=== PATIENT | male | born 1950 | race Caucasian/White ===

== ENCOUNTER 2020-09-07 14:12 | Inpatient (IN) | payer MEDICARE ==
[~2020-09-07] VITALS: Ht 180.3 cm; Wt 98.4 kg
[~2020-09-07 14:12] MED LIST: ACETAMINOPHEN325 MG PO; ALDACTONE25 MG PO; ATIVAN1 MG PO; BAYER CHEWABLE81 MG PO; CARDURA4 MG PO; CHLORTHALIDONE25 MG PO; CHRONULAC30 ML PO; CYMBALTA30 MG PO; DILANTIN100 MG PO; FENTANYL1 EAC5 TRANSDERM; FLAGYL500 MG PO; HYDRALAZINE HCL25 MG PO; K-DUR20 MEQ PO; LASIX40 MG PO; LEVOFLOXACIN500 MG PO; LOPRESSOR25 MG PO; NICODERM CQ1 EAC3 TRANSDERM; OXYCONTIN15 MG PO; PEPCID AC20 MG PO; SENNA LAXATIVE8.6 MG PO; SYNTHROID25 MCG PO; VITAMIN D325 MC1 PO; ZETIA10 MG PO; ZYPREXA5 MG PO
--- NOTE | 2020-09-07 14:28 | NUR ---
LAB CALLED A CRITICAL LAB OF [address] NURSE NOTIFIED DR. MCKEON OF CRITICAL LAB VALUE. DR AWARE. NO NEW ORDERS AT THIS TIME.
[2020-09-07] MEDS ORDERED: DILANTIN50 MG PO (15:39)
[2020-09-07 15:44] LABS: BILIRUBIN NEGATIVE (NEGATIVE); KETONE NEGATIVE (NEGATIVE); NITRITE NEGATIVE (NEGATIVE); UROBILINOGEN NORMAL mg/dL (< 2)
[2020-09-07] MEDS ORDERED: OXYCONTIN30 MG PO (16:10)
[2020-09-07] MEDS ORDERED: XANAX2 MG PO (16:14)
[2020-09-07] MEDS ORDERED: VITAMIN D-32000 UNIT PO (16:16)
[2020-09-07 16:18] LABS: BASOPHILS 0 % (0-2); EOSINOPHILS 3.2 % (0-7); HEMOGLOBIN 12.4 g/dL (13.5-17.5); LYMPHOCYTE ABS# 1.18 10x3/uL (1.32-3.57); LYMPHOCYTES 34.3 % (15-50); MCHC 32.6 g/dL (31.0-37.0); MCV 97.9 fL (80.0-100.0); MEAN PLATELET VOLUME 9.1 fL (7.4-10.4); MONOCYTES 7.6 % (2-11); NEUTROPHIL ABS# 1.89 10x3/uL (1.78-5.38); NEUTROPHILS 54.9 % (40-80); RBC 3.88 10x6/uL (4.20-6.10); RDW 13.4 % (11.5-14.5)
[2020-09-07 16:26] LABS: PLATELET COUNT 49 10x3/uL (130-400)
[2020-09-07 16:27] LABS: WBC 3.4 10x3/uL (4.8-10.8)
[2020-09-07 17:21] LABS: ALBUMIN 2.9 g/dL (3.4-5.0); ALKALINE PHOSPHATASE 86 U/L (30-120); ALT (SGPT) 48 U/L (10-68); BILIRUBIN - TOTAL 0.25 mg/dL (0.2-1.3); CALC OSMOLALITY 275 mosm/kg (275-300); CALCIUM 8.2 mg/dL (8.5-10.1); CARBON DIOXIDE 23.2 mmol/L (21.0-32.0); CHLORIDE - SERUM 106 mmol/L (98-107); CHOLESTEROL, TOTAL 96 mg/dL (0-200); CREATININE - SERUM 0.7 mg/dL (0.6-1.3); GLUCOSE 113 mg/dL (74-106); HDL CHOLESTEROL 48 mg/dL (32-96); LDL CHOLESTEROL 30 mg/dL (0-100); LDL-HDL RATIO 0.6 ratio (1.5-3.5); POTASSIUM - SERUM 4.3 mmol/L (3.5-5.1); SODIUM 138 mmol/L (136-145); TRIGLYCERIDE 93 mg/dL (30-200); UREA NITROGEN 11 mg/dL (7-18); eGFR NON AFRICAN AMERICAN > 90 mL/min (90-120)
--- NOTE | 2020-09-07 18:20 | NUR ---
LATE ENTRY: PATIENT REFUSED TO ANSWER ANY QUESTIONS INCLUDING SI ASSESSEMENT. THE REASON FOR ADMISSION. PT STATED AT THIS TIME "I DONT NEED TO BE HERE . I AM NOT SUCIDIAL. I NEVER SAID THAT." NURSE ATTEMPTED TO DO ASSESSMENT. PT WAS DEMANDING PAIN MEDICATION AT THIS TIME.
--- NOTE | 2020-09-07 18:21 | NUR ---
Rec'd patient to unit via transport van. He is A/O to person. He came on the unit stating he should not even be here and he will "umm" "that other place for putting him here...I have cancer and I am gona either way...whether I eat or not and that's what I told them..I'm gona " He has yelled for pain meds and "nerve" meds since his arrival to the unit. He has been very anxious since his arrival.He is ambulatory in the campo using a rolling walker. He has an unsteady gait. All admission paperwork, assessments, and orders rec'd via HX from assisted and patient. Duragesic patch and Ativan po to the floor and administered per orders.
[2020-09-07 20:00] VITALS: BP 163/82
--- NOTE | 2020-09-07 20:10 | NUR ---
PT IS ALERT AND ORIENTED TO SELF, PLACE AND SITUATION. RECEIVED OUTSIDE THE NURSES STATION USING A ROLLER WALKER TO ASSIST WITH AMBULATION. PACING. RELATES THAT HE IS VERY ANXIOUS ABOUT NOT RECEIVING HIS PAIN MEDICATIONS. PT ASKS NURSE MANY TIMES WHEN HE IS GOING TO RECEIVE ANY OF HIS NIGHT TIME MEDICATIONS. COMPLIANT WITH ALL MEDICATIONS. ADMINISTERED PRN ATIVAN 0.5 MG IM PER ORDERS. EASY TO REDIRECT BUT REQUIRES CONSTANT REDIRECTION. DENIES ANY SI. MONITOR FOR SAFETY.
--- NOTE | 2020-09-07 20:40 | NUR ---
PT ASKS "HOW OFTEN CAN I GET THIS MEDICATION? I TAKE ALOT OF XANAX AT HOME." EXPLAINED THAT IT IS ORDERED EVERY 2 HOURS NEEDED. HE EXPRESSED THAT HE WOULD LIKE TO GET IT EVERY TWO HOURS HE IS USED TO GETTING ALOT OF ANXIETY MEDICATIONS. PT APPEARS LESS ANXIOUS.
--- NOTE | 2020-09-08 01:50 | NUR ---
PT COMES TO NURSES STATION DEMANDING SOMETHING FOR PAIN. I EXPLAINED TO HIM THAT HE DOESNT HAVE ANYTHING ORDERED AT THIS TIME FOR PAIN. HE YELLS "I GOT MY SHOT LAST NIGHT AND YOU SAID I CAN HAVE IT EVERY TWO HOURS. IM HURTING AND I WANT MY PAIN MEDICINE NOW." EDUCATED PATIENT THAT THE ATIVAN IS USED FOR ANXIETY AND IS NOT ORDERED FOR PAIN. PT DEMANDS THAT THIS NURSE GIVE HIM THE SHOT NOW. PT IS YELLING AT STAFF AND REFUSES TO CALM DOWN. HE STATES "DID YOU ALLOW YOUR FATHER TO BE IN THIS PAIN WHEN HE WAS SICK. I HOPE KARDERIAN GETS YOU AND YOU ARE WRONG FOR THIS." PT IS AGGITATED AND UNABLE TO REDIRECT.
--- NOTE | 2020-09-08 02:12 | NUR ---
AGITATION DIRECTED TOWARDS STAFF. ADMINISTERED PRN HALDOL 2 MG AND ATIVAN 0.5MG IM PER ORDERS.
--- NOTE | 2020-09-08 02:45 | NUR ---
PT RESTING IN BED CALMLY. NO SIGNS OF DISTRESS NOTED. MONITOR FOR SAFETY.
--- NOTE | 2020-09-08 09:39 | NUR ---
SW CONTACTED SHELTER AND GOT PT'S DTR'S NUMBER. SW ATTEMPTED TO CONTACT JAKE BUT YOU CANNOT LEAVE A VOICEMAIL.
--- NOTE | 2020-09-08 12:41 | NUR ---
PATIENT EXPERIENCING ANXIETY. ATIVAN 0.5 MG ADMIN IM RIGHT DORSOGLUTEAL. NORI WELL.
--- NOTE | 2020-09-08 14:00 | NUR ---
PATIENT ALERT, FREQUENTLY REQUESTS ATIVAN INJECTION. STATES, "I NEED ANOTHER SHOT FOR MY NERVES." PATIENT HAS BEEN COMPLIANT WITH MEDS THIS SHIFT. REQUESTS A PAIN MEDICATION FREQUENTLY, TYLENOL 650 MG EARLIER THIS SHIFT. PATIENT STATES THAT THE ATIVAN HELPS HIS ABD PAIN. STATES THAT HIS FENTANYL PATCH HAS NOT HELPED HIS PAIN AND FREQUENTLY REFQUESTS ATIVAN. DENIES S.I. AT THIS TIME. PATIENT SPEAKS LOUDLY AND IS QUITE BOISTEROUS.
[2020-09-08 16:17] VITALS: Ht 180.3 cm; Wt 98.4 kg
--- NOTE | 2020-09-08 22:03 | NUR ---
RECEIVED PATIENT IN THE HALLWAY AT NURSE'S STATION, HE IS VERY ANXIOUS, HE ASKS QUESTION AFTER QUESTION AND DOESN'T ALLOW THE FIRST QUESTION TO BE ANSWERED BEFORE HE ASKS ANOTHER QUESTION. HALDOL AND ATIVAN GIVEN IM AT 1999 WITH MINIMUM RESULTS. COMPLIANT WITH MEDS. WILL FOLLOW POC
[2020-09-09 00:03] VITALS: BP 131/70
[2020-09-09 09:11] VITALS: BP 113/64
--- NOTE | 2020-09-09 10:48 | NUR ---
PT LAYING IN BED AT THIS TIME. CALM AND COOPERATIVE AT THIS TIME. PT DID COME TO NURSES STATION ASKING FOR MEDICATIONS THIS A.M. PT WAS CALM AND PATIENT WHILE NURSE GATHERED MEDICATIONS. FENTANYL PATCH IN PLACE. COMPLIANT WITH MEDS, VITALS. PT DOES AMBULATE WITH WALKER. PT IS ANXIOUS AT TIMES ABOUT MEDICATIONS. PT REFUSED TO EAT BREAKFAST THIS A.M. WILL CONT TO MONITOR FOCUS SEDATIONS. FALL PRECAUTIONS IN PLACE. WILL CONT PLAN OF CARE.
--- NOTE | 2020-09-09 16:50 | NUR ---
DR. MCKEON HERE SPEAKING WITH PT AT THIS TIME. PT ARGUMENATIVE WITH DOCTOR, STAFF AND PEERS. SECURITY CALLED WELL TO OBTAIN PT WALLET AND BELONGINGS AT THIS TIME. ITEMS SENT TO ER LOCKBOX WITH SECURITY PRESENT AT THIS TIME. PT ALLOW STAFF TO COUNT AND OBTAIN ITEMS. CELLPHONE SENT TO LOCKBOX WELL. PT DID INTITALLY REFUSE TO ALLOW STAFF TO SEARCH AND OBTAIN ITEMS.
--- NOTE | 2020-09-09 17:50 | NUR ---
nurse called security due to pt banging on doors, yelling he was leaving, unable to redirect. very aggressive behaviors noted. Ruthie Dejesus RN administered haldol IM for anxiety. pt intial stated that if she touched him he she was putting herself in the danger zone and he was not taking the medication. nurse stated the doctor ordered these medications for anxiety and he was anxious and out of breath at this time. pt allowed staff to administer medicaitions.
--- NOTE | 2020-09-09 18:03 | NUR ---
PT IS ARGUMENATIVE WITH STAFF AT THIS TIME. PT REFUSED FOOD TRAY AND KITCHEN TOOK MEAL CART. PT IS STATING WE KEPT HIS FOOD FROM HIM AND HE CANT GET A TRAY AT ALL. STAFF ATTEMPTED TO EXPLAIN SEVERAL TIMES THAT THE MEALS ARE PICKED UP AT A CERTAIN TIME AND STAFF CAN NOT BRING BACK THE FOOD CART. STAFF OFFERED MEAL REPLACEMENT AND PT ACCEPTED. SPRITE AND SOUP GIVEN. PT ACCEPTED.
--- NOTE | 2020-09-09 18:52 | NUR ---
med not effective. anxiety conts.
[2020-09-09 20:00] VITALS: BP 126/75
--- NOTE | 2020-09-09 20:54 | NUR ---
RECEIVED PATIENT ON UNIT, HE IS VERY EASILY AGITATED, HE ASKS FOR THINGS CONSTANTLY, (MEDS, SPRITE, COFFEE, PHONE CALLS, ETC). HE COMPLAINS ABOUT EVERYTHING. COMPLIANT WITH MEDS. WILL FOLLOW POC
--- NOTE | 2020-09-09 22:20 | NUR ---
PATIENT'S DAUGHTER CALLED AND SAID SHE HAD SOME CALLS ON HER PHONE FROM THIS NUMBER FROM HER DAD. THE FACILITY HE WAS AT DID NOT LET HER KNOW HE WAS HERE. TALKED TO HER FOR 20 MINUTES AND UPDATED HER TO HIS STATUS. [facility]. HER NAME IS JAKE AND HIS ONLY RELATIVE THAT WILL CLAIM HIM FAMILY. SHE WAS GIVEN TIMES FOR CALLING HER DAD AND TOLD SHE COULD CALL AND CHECK WITH NURSES FOR UPDATES. SHE REQUEST TO TALK WITH SEARCH AND RESCUE OFFICER IJEOMA ABOUT HER DAD. SHE SAYS HE WOULD NOT HARM HIMSELF, BUT HE WOULD USE SI A THREAT TO TRY TO GET WHAT HE WANTS.
--- NOTE | 2020-09-10 00:57 | NUR ---
PATIENT RECEIVED ATIVAN @ 2245 FOR AGITATION AND SHAKING. HE IS HARD TO CALM DOWN. WITH MINIUM RESULTS. PATIENT RECEIVED HALDOL 2MG IM AT THIS TIME FOR ANXIETY AND STILL SHAKING AND HE REQUESTED HALDOL. WILL MONITOR FOR RESULTS.
--- NOTE | 2020-09-10 04:31 | NUR ---
PATIENT AWAKE AND AMBULATED TO NURSES DESK WITH WALKER, REQUESTING SOMETHING FOR ANXIETY AND SHAKING. HALDOL 2 MG IM GIVEN IN LEFT GLUTEAL PER ASHLEY LAMA RN.
--- NOTE | 2020-09-10 07:08 | NUR ---
MEDICATION MILDLY EFFECTIVE. WOKE UP AND REQUESTING IF HE COULD HAVE ANYTHING FOR ANXIETY.
--- NOTE | 2020-09-10 09:00 | NUR ---
PATIENT HAS HAD [address] MCKEON NOTIFIED. ORDER FOR KUB RECEIVED.
[2020-09-10 09:53] VITALS: BP 118/73
--- NOTE | 2020-09-10 10:40 | NUR ---
DR MCKEON NOTIFIED OF KUB RESULTS. NEW ORDERS TO CHANGE MIRALAX 17 GM FROM DAILY TO BID, CHANGE SENOKOT 1 TAB FROM DAILY TO BID, AND ADD DULCOLAX 5 MG BID RECEIVED.
--- NOTE | 2020-09-10 11:31 | HP ---
PATIENT: RAND AGUILLON MEDICAL RECORD: [id number] ACCOUNT: [id number] LOCATION:[facility] : 52 ADMISSION DATE: 09/07/20 PCP: No PCP HISTORY AND PHYSICAL EXAMINATION IDENTIFYING DATA: The patient is a 70-year-old male who is admitted from [facility], voluntarily. CHIEF COMPLAINT: Aggression. HISTORY OF PRESENT ILLNESS: The patient states that he became very mad at the nurse who did not want to give him his oxycodone and that he was very agitated and he stated "you can't take away my oxy." After further discussion, the patient states "I want off hospice." The patient asked "why you doing this to me, you are trying to kill me." I explained to the patient that hospice is managing his pain management. The patient was then offered his lunch tray and the patient stated "I don't want to eat. The patient then stated "if you give me back my oxy, I will eat, but if you don't then I will starve myself, I will not eat. I will starve myself to . I will because I will not eat." On a previous occasion, staff did find some white powdery substance on the bathroom floor, they were unable to identify the substance. The patient was thought to maybe be cheeking his medication and then he was referred to and wanted to come to Longterm. PAST MEDICAL HISTORY: Hypokalemia, hypertension, seizures, diverticulitis of intestine part unspecified, without perforation or abscess without bleeding, unspecified abdominal pain, atherosclerotic heart disease of [place] coronary artery, major depressive benign prostate, cirrhosis of the liver and malignant neoplasm of the liver. It was reported earlier that the patient did have a diagnosis of cancer and had refused chemo. PAST PSYCHIATRIC HISTORY: The patient denies; however, there is documentation for major depressive disorder. FAMILY HISTORY: Noncontributory. ALLERGIES: CODEINE AND PENICILLINS. CURRENT MEDICATIONS: Includes Cardura 4 mg, Zetia 10 mg, Apresoline 25 mg, Lopressor 12.5 mg, Aldactone 25 mg, Tylenol 650 mg q.4 hours, aspirin 81 mg, and duloxetine 30 mg. Dilantin extended release 100 mg b.i.d., Fentanyl 100 mcg every 72 hours, Dilantin 100 mg p.o. twice a day, Dilantin Infatabs 50 mg tablet chewable, Oxycodone 30 mg SR 12 hours, 30 mg p.o. q.6 hours p.r.n. Potassium chloride 20 mEq q.6 hours, Pepcid 10 mg, Sennosides 8.6 mg, Synthroid 25 mcg, and vitamin D 2000 units daily. SOCIAL HISTORY: The patient is pretty guarded with his history. He does state he has 2 children, a daughter, and a son. The patient was reported to be an every day smoker, not indicated for alcohol or recreational drug use; however, there was a question about his hepatitis C and potential abuse of opioids and anxiolytics such as benzo use issues. The patient does not discuss his marital or employment status. MENTAL STATUS EXAM: The patient is alert and oriented to person, place, time, somewhat to situation. His speech is fast, higher tone, higher volume. His eye HISTORY AND PHYSICAL [id number] PAL,RAND R contact is good. His posture is within normal limits. There is not any evidence of psychomotor agitation or retardation. His mood is depressed and easily agitated. His affect is flat, narrow in range. The patient does have some suicidal ideation, some aggressive behavior toward others. The patient did not appear to be attending to external stimuli such as auditory or visual hallucinations. He does not appear to be delusional. He appears to have some moderate impairment of memory, concentration, and abstraction abilities. The patient is guarded with whether or not he has had any history of sexual, physical, or emotional trauma. AXIS I: Major depression, recurrent; generalized anxiety disorder. Anxiety. AXIS II: Deferred. AXIS III: Includes hypertension, hep C, liver cirrhosis, history of CVA, seizure disorder, history of CAD and BPH. AXIS IV: Moderate stressors. AXIS V: Global assessment of functioning is 40. PLAN: At this time, the patient is going to be admitted to the hospital for a comprehensive medical, psychological, and social evaluation. He will be treated with both mood and thought stabilizing and memory enhancing medications. His long-term prognosis is guarded. Dictated By: Bibiana Vann APN I have interviewed/examined the above patient and agree with these documented findings. TRANSINT:[id number] Voice Confirmation ID: [id number] DOCUMENT ID: [id number] Dictated By: BIBIANA VANN I have interviewed/examined the above patient and agree with these documented findings. LISA MORROW MD at 1200 at 1131 CC: [id number] DICTATION DATE: 09/07/201919 WELLHEAD PUMPER: 09/07/202134 ADM IN [place] [address] [place] [address]
--- NOTE | 2020-09-10 12:23 | NUR ---
RECEIVED PATIENT SEEN IN HALLWAY BY THE NURSES STATION. AWAKE AND ALERT X4. PATIENT IS VERY DEMANDING AND DEMANDS FOR SHOT FOR ANXIETY. STAFF EXPLAINED TO PATIENT UNABLE TO GIVE A SHOT FOR ANXIETY AT THIS TIME. PRESCRIBED MEDICATIONS PROVIDED AT THIS TIME. ANXIETY MEDICATION INCLUDED IN THOSE MEDS. MED COMPLIANT. PATIENT BECOMES VERY EASILY AGITATED AND WALKS OFF TO BEDROOM CUSSING AT STAFF AT THIS TIME. REDIRECT AND REORIENT NEEDED. FALL PRECAUTIONS IN PLACE FOR SAFETY. WILL CPOC.
[2020-09-10 19:30] VITALS: BP 131/76
--- NOTE | 2020-09-10 21:04 | NUR ---
RECEIVED PATIENT IN [facility], HE IS VISITING WITH OTHERS AND TALKING ON PHONE WITH DAUGHTER, HE REMAINS TO ASK FOR THIS AND ASK FOR THAT. HE WANTS PAIN MEDS. TRAMADOL GIVEN PO FOR KNEE PAIN. WILL MONITOR FOR EFFECTIVENESS. COMPLIANT WITH MEDS. WILL FOLLOW POC
--- NOTE | 2020-09-11 09:40 | NUR ---
SW ATTEMPTED TO CONTACT JAKE FOR BIOPSYCHOSOCIAL COULDN'T LEAVE A VOICEMAIL.
[2020-09-11 11:59] VITALS: BP 120/60
--- NOTE | 2020-09-11 15:30 | NUR ---
RECEIVED PATIENT IN HALLWAY BY NURSES STATION. AWAKE AND ALERT X4. CALM AND COOPERATIVE WITH ASSESSMENT AT THIS TIME. PRESCRIBED MEDICATIONS PROVIDED ORDERED. MED COMPLIANT. PATIENT CAN BE VERY DEMANDING WITH STAFF AT TIMES. PATIENT IS REQUESTING ALL MEDICATIONS BE GIVEN AN iNJECTION FORM. sTAFF EDUCATED PATIENT THAT MEDICATIONS CAN ONLY BE ADMINISTERED ORDERED PER THE MD. STAFF EXPLAINED NOT ALL MEDICATIONS COME IN INJECTION FORM. PATIENT BECOMES EASILY AGITATED WITH REDIRECTION AT TIMES. FALL PRECAUTION IN PLACE FOR SAFETY. WILL CONTINUE PLAN OF CARE.
[2020-09-11 22:10] VITALS: BP 105/65
--- NOTE | 2020-09-11 22:12 | NUR ---
PT IS ALERT AND ORIENTED X4. PT DENIES SI. HE IS DEMANDING AND RELATES THAT HE DOESNT WANT THE BED ALARM ON. HE STATES "I KNOW THE OTHER PATIENTS DONT HAVE ONE ON THEIR BED AND I NEVER FALL." I INFORMED HIM THAT ALL OF THE OTHER PATIENTS HAVE BED ALARMS AND THEY ARE ALL ON. HE IS OBSERVED WATCHING THE CLOCK AND ASKING FOR THE "PAIN SHOT GEODON." THE NURSE INFORMED HIM THAT HE RECEIVED ALOT OF HS MEDICATIONS THAT CAN MAKE HIM GROGGY AND THAT GEODON IS NOT ORDERED FOR PAIN. OBSERVED HIM ASK THE OTHER NURSE THAT SAME QUESTION. COMPLIANT WITH ALL SCHEDULED MEDICATIONS AND A PRN TRAMADOL FOR PAIN. PT CAN BE RESISTANT TO REDIRECTION. MONITOR FOR SAFETY.
--- NOTE | 2020-09-11 22:39 | NUR ---
PT COMES INTO HALLWAY AND REQUEST PAIN MEDICATIONS. INFORMED HIM THAT HIS CANNOT RECEIVE ANYTHING FOR 2.5 HOURS. HE BECAME UPSET AND DEMANDS THAT WE CALL THE DOCTOR TO GET HIM SOME PAIN MEDICATIONS. HE RELATES THAT HE HAS LIVER CANCER. PT IS REQUESTING A SHOT FOR PAIN. INFORMED PT THAT THE SHOTS ARE FOR BEHAVIOR AND NOT FOR PAIN. DIFFICULT TO REDIRECT.
[2020-09-12 08:00] VITALS: BP 152/71
[2020-09-12 09:33] LABS: CALC OSMOLALITY 282 mosm/kg (275-300); CALCIUM 7.8 mg/dL (8.5-10.1); CARBON DIOXIDE 22.7 mmol/L (21.0-32.0); CHLORIDE - SERUM 105 mmol/L (98-107); CREATININE - SERUM 0.9 mg/dL (0.6-1.3); GLUCOSE 150 mg/dL (74-106); POTASSIUM - SERUM 3.4 mmol/L (3.5-5.1); SODIUM 139 mmol/L (136-145); UREA NITROGEN 17 mg/dL (7-18); eGFR NON AFRICAN AMERICAN 89 mL/min (90-120)
--- NOTE | 2020-09-12 15:24 | PN ---
PATIENT:RAND AGUILLON MEDICAL RECORD: [id number] LOCATION:[facility] ADMISSION DATE: 09/07/20 PROGRESS NOTE DATE OF SERVICE: 09/11/2020 SUBJECTIVE: The patient's case was discussed with staff. He has no new complaint. OBJECTIVE: The patient is somewhat drug seeking and anxious, but strongly denies that he would seek to harm himself. ASSESSMENT: Major depression. PLAN: The patient has shown improvement and can reasonably be transitioned back to the pen[facility] soon. TRANSINT:[id number] Voice Confirmation ID: [id number] DOCUMENT ID: [id number] LISA MORROW MD at 1524 CC: [id number] DICTATION DATE: 09/11/20 1642 WILDLIFE BIOSTATION RESEARCH ECOLOGIST: 09/12/20 0059 ADM IN [place] [id number] [place] [address]
[2020-09-12 20:16] VITALS: BP 124/74
--- NOTE | 2020-09-12 20:35 | NUR ---
RECEIVED IN HALLWAY ALERT AND ORIENTED X 4. CALM AND COOPERATIVE WITH ASSESSMENT. MEDICATION COMPLINAT WITH HALF OF MEDICATIONS, BUT REFUSED TO TAKE LAXATIVE MEDS. HE SAYS HE HAS GONE A LOTS TODAY. HE IS REQUESTING PAIN MEDS, BUT IT WILL BE ANOTHER HOUR BEFORE IT IS DUE. CONTINUE PLAN OF CARE.
--- NOTE | 2020-09-13 01:15 | NUR ---
ULTRAM 50 MG PO GIVEN FOR LEVEL #10 ABDOMINAL/LIVER PAIN.
--- NOTE | 2020-09-13 02:00 | NUR ---
PAIN MEDICATION EFFECTIVE/ SLEEPING AT THIS TIME. NO DISTRESS NOTED.
[2020-09-13 08:00] VITALS: BP 130/72
--- NOTE | 2020-09-13 15:18 | PN ---
PATIENT:RAND AGUILLON MEDICAL RECORD: [id number] LOCATION:[facility] ADMISSION DATE: 09/07/20 PROGRESS NOTE DATE OF SERVICE: 09/12/2020 SUBJECTIVE: The patient's case was discussed with staff. He has no new complaint. OBJECTIVE: The patient denies intent to harm himself or others. He is tolerating his medications well. He is not having any suicidal thoughts. ASSESSMENT: Dementia. PLAN: Current medicines have been reviewed and will be maintained. Long-term prognosis is guarded. TRANSINT:[id number] Voice Confirmation ID: [id number] DOCUMENT ID: [id number] LISA MORROW MD at 1518 CC: [id number] DICTATION DATE: 09/12/20 1611 B2B SALES CONSULTANT: 09/12/20 2328 ADM IN [facility] [address] [place] [address]
--- NOTE | 2020-09-13 15:58 | NUR ---
Nutrition Re-Assessment Diet: Regular double meat PO intake: ~89% average x last 9 meals Last BM: 09/12/20 x 2 Wt: 217# (09/10/20)-WC; Admit Wt: 242# (09/07/20)-WC Noted -25# weight change since admited. Both are wheelchair weights. Suspect inaccuracy of one of these recorded weights. Meds noted: senokot, miralax, micro-k, lasix, dulcolax Labs noted: K 3.4(L), Glu 150(H) Estimated nutrition needs and nutrition diagnosis remain unchanged from initial nutrition assessment at this time. Patient is progressing towards meeting nutrition goals at this time. Recommendations/Interventions: -Recommend continue current diet. Will continue to honor food preferences. -RD will follow-up within 7 days.
--- NOTE | 2020-09-13 17:04 | NUR ---
Rec'd patient this am ambulating in hallway with a walker. He is A/O times 2 to person and situation. He is calm and coorp today and easy to redirect if needed. He is med compliant and takes his meds whole. He attended time with staff at group/activities today and participated well. He had his Duragesic patch removed today and reapplied new. Patch covered with a clear Tegaderm. He requested a PO pain pill at 1800. He is denying any suicide ideations.
--- NOTE | 2020-09-13 17:35 | NUR ---
Hospice oceanographer assistantguest service manager calls today checking on on patient and as a courtsey reminder that he on their Hospice services. She states he will return to their care when he goes back to the halfway.
[2020-09-13 20:00] VITALS: BP 112/76
--- NOTE | 2020-09-13 22:14 | NUR ---
RECEIVED PATIENT IN HALLWAY SOCIALIZING WITH PEERS, HE IS PLEASANT BUT "PUSHES THINGS TO THE LIMIT", HE DRUG SEEKS AND SAYS THINGS SUCH , "PLEASE BABY, I LOVE YOU" HE IS VERY HYPERVERBAL. WILL FOLLOW POC. ULTRAM GIVEN AT 2114 FOR KNEE PAIN AND RESULT WERE EFFECTIVE.
[2020-09-14 08:54] VITALS: BP 116/73
--- NOTE | 2020-09-14 13:37 | PN ---
PATIENT:RAND AGUILLON MEDICAL RECORD: [id number] LOCATION:[facility] ADMISSION DATE: 09/07/20 PROGRESS NOTE DATE OF SERVICE: 09/13/2020 SUBJECTIVE: The patient's case was discussed with staff. He has no new complaint. OBJECTIVE: The patient is medication seeking, complaining about anxiety when there is no objective evidence that it is there and complaining about discomfort when again there is no evidence at all that he is in discomfort. He is already receiving what I consider to be an inappropriate dose of both narcotics and a benzodiazepine, especially given his lifelong history of polysubstance abuse and addiction. Now that he is critically ill, I believe he is using his medical condition as pretext for requesting inappropriate amounts of medications. He is not suicidal and his mood has improved and based on these 2 factors, he is appropriate to be returned to the halfway. TRANSINT:[id number] Voice Confirmation ID: [id number] DOCUMENT ID: [id number] LISA MORROW MD at 1337 CC: [id number] DICTATION DATE: 09/13/20 1639 SURVEYING CREW RODMAN: 09/13/20 2101 ADM IN [facility] [address] [place] [id number]
--- NOTE | 2020-09-14 16:02 | NUR ---
ALERT, CALM, COOPERATIVE. MEDS ADMIN PER ORDERS WITH COMPLETE MED COMPLIANCE NOTED. DENIES S.I. TRAMADOL ADMIN EARLIER IN SHIFT FOR BACK PAIN. MEDICATION EFFECTIVE. CONTINUE PLAN OPF CARE DIRECTED.
[2020-09-14] MEDS ORDERED: GABAPENTIN100 MG PO (17:27)
[2020-09-14] MEDS ORDERED: Duragesic TRANSDERM (17:27)
[2020-09-14] MEDS ORDERED: KLONOPIN0.5 MG PO (17:27)
[2020-09-14] MEDS ORDERED: LASIX40 MG PO (17:28)
[2020-09-14] MEDS ORDERED: DULCOLAX5 MG PO (17:28)
[2020-09-14] MEDS ORDERED: MIRALAX17 GM PO (17:28)
[2020-09-14] MEDS ORDERED: Senokot TAB PO (17:28)
[2020-09-14 20:00] VITALS: BP 113/74
--- NOTE | 2020-09-14 21:50 | NUR ---
RECEIVED PATIENT ON UNIT SOCIALIZING WITH PEERS. HE IS VERY "NEEDY" STILL, HE WANTS THIS AND WANTS THAT, HE COMPLAINS ABOUT BEING NERVOUS ALTHOUGH HE IS SOCIALIZING, SMILING AND SO FORTH. COMPLIANT WITH MEDS. WILL FOLLOW POC
--- NOTE | 2020-09-15 08:47 | NUR ---
Patient requested a "pain pill" for his abd. cancer pain. He rates his pain at a "7" on a scale of 1-10. Tramadol given PO
--- NOTE | 2020-09-15 08:56 | NUR ---
NURSE FAXED PAPERWORK TO HOSPICE AT THIS TIME. PAPERWORK FAXED TO [facility]. MARTY FAXED WELL. PICKUP TIME ARRANGED FOR 2 P.M.
--- NOTE | 2020-09-15 09:11 | NUR ---
NURSE CALLED REPORT TO SERGIO AT [facility]. UPDATE GIVEN, PAPERWORK FAXED AT THIS TIME, UPDATED BOWEL MOVEMENTS, UPDATED SET OF VITALS. PT IS CALM AND COOPERATIVE AT THIS TIME. PICK-UP AT 2 P.M. PT UPDATED VITALS SIGNS. NURSE GAVE DIRECT PHONE NUMBER TO UNIT.
--- NOTE | 2020-09-15 09:21 | NUR ---
ER BROUGHT PATIENTS FROM ER LOCKBOX. COPY GIVEN TO PT AT THIS TIME.
[2020-09-15 09:55] VITALS: BP 112/69
--- NOTE | 2020-09-15 14:52 | NUR ---
PT D/C TO [facility]. PT WAS READY TO LEAVE. HUGGED STAFF AND WAS SMILING. 1500 MEDS WERE ADMINISTERED FOR D/C. PT ER BELONGINGS GIVEN TO HIM UPON D/C AND PLACED UPON HIS PERSON. ENEDELIAER WALKER WITH PT WELL. PAPERCOPY SENT WITH PT TO PRISON. NO BEHAVIORS NOTED. PT WAS IN GOOD MOOD. NURSE REPORTED TO DRIVERS THAT PT MEDS WERE ADMINISTED BEFORE D/C.
--- NOTE | 2020-09-15 15:16 | NUR ---
Rec'd patient this am sitting up in the hallway. He is ambulatory using a rolling walker. He is A/O times 3 to person, place, and situation. He has been more nervous today because he's "going home" but has been cooperative and happy. He is med compliant and takes meds whole. He participated in therapy/groups today and spent a lot of time visiting with the other patients and staff. He became very "nervous" and slightly aggitated about 30 minutes prior to his discharge but once redirected, he calmed down. This nurse gave him his 3pm meds prior to leaving facility at approx 1520. He left via assisted van accompianed by assisted staff.All his belongings of personal items, his phone and quality review trainer, and his wallet after it had been cdounted back as correct.
--- NOTE | 2020-09-18 14:04 | PN ---
PATIENT:RAND AGUILLON MEDICAL RECORD: [id number] LOCATION:[facility] ADMISSION DATE: 09/07/20 PROGRESS NOTE DATE OF SERVICE: 09/14/2020 SUBJECTIVE: The patient's case was discussed with staff. He has no new complaint. OBJECTIVE: The patient is in good behavioral control and has no thoughts of harming himself or others. He does engage in drug seeking behavior and complains of both pain and anxiety that are far out of proportion to what is objectively observed. Given his history of addiction this makes it problematic to treat him under the conditions that he currently has, which apparently he has some significant medical issues. ASSESSMENT: Major depression. PLAN: The patient will be transitioned out of the hospital and back to the halfway tomorrow. Follow up will be with his primary care physician. There is no evidence of acute dangerousness. He is requesting a followup appointment with a capacitor tester and I think that is a reasonable thing and I will discuss that with the treatment team and make sure the recommendation is followed through on. TRANSINT:[id number] Voice Confirmation ID: [id number] DOCUMENT ID: [id number] LISA MORROW MD at 1404 CC: [id number] DICTATION DATE: 09/14/201822 REPORTING SPECIALIST: 09/14/20 183 DIS IN 09/15/20 [facility] [address] [place] [address]
--- NOTE | 2020-09-18 14:05 | DS ---
PATIENT:RAND AGUILLON :54 MEDICAL RECORD: [id number] DISCHARGE SUMMARY ADMISSION DATE: 09/07/20 DISCHARGE DATE: 09/15/20 DATE OF ADMISSION: 09/07/2020. DATE OF DISCHARGE: 09/15/2020. IDENTIFYING DATA: The patient is a 70-year-old male who was admitted from [facility] voluntarily. CHIEF COMPLAINT: Aggression. HISTORY OF PRESENT ILLNESS: The patient states that he became very mad at the nurse who did not want to give him his oxycodone and that he was very agitated and he stated he just "you can't take my oxycodone away." After further discussion, he wanted off hospice and then he accused the staffs wanted to kill him. He then stated that he was not going to eat if they were not going to give him his oxycodone and that he would starve himself to . He states and then he would because he would not eat. HOSPITAL COURSE: The patient was admitted to the hospital and fully evaluated from both medical, psychological, and social standpoint. He was found to have major depression and was treated with mood stabilizing medications. He did show improvement through the course of the hospitalization with transition back to [facility]. DISCHARGE DIAGNOSIS: AXIS I: Major depression. AXIS II: Deferred. AXIS III: Hypertension, hep C, liver cirrhosis, history of CVA, seizure disorder, history of CAD, and BPH. AXIS IV: Moderate stressors. AXIS V: Global Assessment of Functioning 40. PLAN: At the time of discharge, the patient was in good behavioral control and had no thoughts of harming himself or others. He was tolerating his medications well and his long-term prognosis is guarded. He is in need of long-term care. Dictated By: Bibiana Vann APN I have interviewed/examined the above patient and agree with these documented findings. TRANSINT:[id number] Voice Confirmation ID: [id number] DOCUMENT ID: [id number] Dictated By: BIBIANA VANN I have interviewed/examined the above patient and agree with these documented findings. DISCHARGE SUMMARY REPORT [id number] PAL,LISA NUNO MD at [id number] CC: [id number] DICTATION DATE: 09/17/20 1156 FISHER QUAHOG: 09/17/20 2236 DIS IN 09/15/20 [place] [id number] [place] [id number]
== END 2020-09-15 14:50 | DRG 880 ==
LOC: D.PSYCH 14:12
PROVIDERS: Family Medicine; ADMIT Psychiatry & Neurology Psychiatry; ATTEND Psychiatry & Neurology Psychiatry
DX: F41.8 Other specified anxiety disorders (principal); C22.7 Other specified carcinomas of liver; I10 Essential (primary) hypertension; I25.10 Atherosclerotic heart disease of native coronary artery without angina pectoris; K74.69 Other cirrhosis of liver; R10.30 Lower abdominal pain, unspecified; N40.0 Benign prostatic hyperplasia without lower urinary tract symptoms; D69.6 Thrombocytopenia, unspecified; G40.909 Epilepsy, unspecified, not intractable, without status epilepticus; J44.9 Chronic obstructive pulmonary disease, unspecified; K59.00 Constipation, unspecified; E55.9 Vitamin D deficiency, unspecified; E03.9 Hypothyroidism, unspecified; E78.5 Hyperlipidemia, unspecified; R22.40 Localized swelling, mass and lump, unspecified lower limb; K21.9 Gastro-esophageal reflux disease without esophagitis